=== PATIENT | male | born 1975 | race Caucasian/White ===

== ENCOUNTER 2016-04-28 18:20 | Inpatient (IN) | payer MEDICAID ==
[2016-04-28] MEDS ORDERED: MAG HYDROX/AL HYDROX/SIMETH 30 ML CUP PO PRN (21:46)
[2016-04-28] MEDS ORDERED: MAGNESIUM HYDROXIDE 2,400 MG/10 ML CUP PO PRN (21:46)
[2016-04-28] MEDS ORDERED: LORazepam 2 MG/ML SYRINGE IM PRN (21:50)
[2016-04-28] MEDS ORDERED: ZIPRASIDONE 40 MG CAP PO SCH (22:00)
[2016-04-28] MEDS: NICOTINE 14MG/24HR PATCH TRANSDERM SCH (23:25)
[2016-04-29] MEDS ORDERED: SYMBICORT 160-4.5 MCG INHALER INHALATION SCH (08:00)
[2016-04-29] MEDS: NICOTINE 14MG/24HR PATCH TRANSDERM SCH (09:10)
[2016-04-29] MEDS: ZIPRASIDONE 40 MG CAP PO SCH ×2 (09:11→21:00)
--- NOTE | 2016-04-29 10:42 | HP ---
DATE OF ADMISSION: 04/28/2016 IDENTIFYING DATA: Patient is a 41 years old male, unemployed and he lives with his cousin and cousin's family. He was referred to the mental health unit for command hallucination . CHIEF COMPLAINT: Patient presented with severe depression for the last couple of days and increased auditory hallucination, telling him to hurt himself. HISTORY OF PRESENT ILLNESS: Patient has long history of psychiatric illness, started in 2000 and he has been seen at the [facility] and he has therapist his name is Anand and his psychiatric Dr. Mayfield. Patient reports at least 11 inpatient psych hospitalization and his last hospitalization was at our unit here in September 2015. Patient stated that his outpatient psychiatrist reduced the Geodon dose from 80 mg a day to 40 mg a day and he has been taking trazodone 100-150 at bedtime in addition to Ativan 0.5 up to 3 times a day p.r.n. Patient endorses increased depression for the last couple of days, sleeping up to 12 to 14 hours a day. No energy. No motivation and command they visual hallucination got quite intense for the last couple of days. Patient cannot identify any trigger. Patient stated that he is trying to appeal social security claim as he was denied before and currently he is waiting about the result. Patient stated that he always has voices, but they are very soft and he was able to ignore it. Patient reports that the voices was telling him to cut his wrist and he could not contract for safety and that is why he did ask to come to the hospital. Patient stated that he has been compliant with the medication as prescribed, but he said, "I don't know I come to the hospital to adjust my medication then in the outpatient they tried to cut it down". When I did ask him about the reason if he did have any side effects or if it did affect his heart he said, "I'm not sure why did she do it". Patient endorses anxiety and feeling that he is missing his children as he talked about having 2 teenage age 17 and 16, they are living in [place] and he has been not able to see them for the last 2 years. Patient said, " I don't have the money to take her to the court to ask for visitation because now she took my kids and she is remarried." PAST PSYCHIATRIC HISTORY: 1. As I mentioned before, patient had at least between 10 to 11 psych hospitalization. First psych hospitalization it was in 2000 and his last psych hospitalization was here in our unit in September 2015. 2. Patient was diagnosed with schizoaffective disorder versus major depression with psychotic feature. 3. He stated that he had one suicide attempt in the past as he did cut his wrist. 4. Psychotropic medication try he tried where the trazodone manic as Cymbalta dose tried that patient reported that the most effective medications that does increase the intensity of the voices is Geodon and at one time he was up to 80 mg in the morning and 40 mg at night. Chemical dependency history: Patient reports past history of alcohol use; however, he denied any alcohol or for the last 8 years. FAMILY HISTORY PSYCHIATRIC HISTORY: His father was alcoholic. Also, he stated that his mother is known to have psychiatric illness but patient is not aware about her diagnosis. PAST MEDICAL HISTORY: Patient denied any current significant general history except he has asthma and allergies. However, in the record it does shows that he has history of irregular heart rhythm. ALLERGIES: ERYTHROMYCIN. Review all the system is negative for 11 systems, for further past medical history please review history and physical examination done by medical consultation. Legal program: He denied any legal program. SOCIAL HISTORY: Patient is oldest of 7 sibship, he had 3 brothers and 3 sisters and one of brothers from lymphoma. Also, his father from leukemia. Patient was in special education class since elementary school due to dyslexia. He was once, ended by divorce and he has 2 children, a son who is 16 years of age, daughter 17 years of age and as I mentioned before, patient did not see them for 2 years. The patient is unemployed for the last 8 years and he has no income. He just have food stamps. Patient was an relationship up to 2013 when she want to do surgery and then she and patient stated that since then he has been having a lot of grief and is not able to get over the losses. For the last year patient has been living with his cousin and cousin's . 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 However, after this it seems that he has been spending most of the day watching TV. Patient stated that his main support system is his mother. MENTAL STATUS EXAMINATION: Patient is an overweight male, who is disheveled, body odor dressed in hospital, very pleasant, cooperative. He reports a depressed mood, feeling lonely, hopeless also he reports auditory hallucination, telling him to hurt himself. His thought process is linear and he did provide answers to most of the question with very brief response. In general he was not spontaneous, and he has some dysarthria. His voice sounds like staccato rythm. On the cognitive exam he was oriented and alert to person, place and today's date. He was able to remember 2 out of 3 objects in 4 minutes. He was able to spell [id number] forward but backward he said [id number]. His insight and judgment are limited. Intellectual levels: Below average. Strength and weakness: STRENGTH: He is able to ask for help. Also he has family support. WEAKNESS: There is no income, chronic mental illness. ASSESSMENT: The patient is a 41 -year-old male with diagnosis of schizoaffective disorder. Currently he has depression and auditory hallucination with command type. It seems that he has been compliant with medication. However, it seems that Geodon was cut down from 80 to 40, that might be precipitating this episode. Patient is willing to be engaged treatment. DIAGNOSES: 1. Schizoaffective disorder, depressed type. 2. Dyslexia by history. PLAN AND RECOMMENDATION: Patient was admitted to the mental health unit and he did sign in voluntarily. I will increase the Geodon to 40 mg twice a day. I will continue him on Ativan 0.5 p.r.n. and also, I will start him back on trazodone 100 mg at bedtime. I did order an EKG to rule out any irregular heartbeat. Patient will participate in individual and group therapy as tolerated. Patient will have medical care consultation by the hospitalist. Length of stay 4 to 5 days with the plan to discharge him back to [facility]. YARIEL
[2016-04-29] MEDS: LORazepam 1 MG TAB PO PRN (16:37)
[2016-04-29] MEDS: ACETAMINOPHEN TAB 325 MG TAB PO PRN (20:17)
[2016-04-29] MEDS ORDERED: traZODone HCL 100 MG TAB PO SCH (21:00)
[2016-04-29] MEDS: traZODone HCL 50 MG TAB PO SCH (21:00)
--- NOTE | 2016-04-29 22:13 | CONS ---
DATE OF CONSULTATION: REASON FOR CONSULTATION: Medical history and physical. HISTORY OF PRESENTING ILLNESS: This is a 41-year-old gentleman with no significant medical history who comes into the hospital with some visual hallucinations and some auditory hallucinations that were guiding him to hurt himself. At this time patient denies having any suicidal ideations. Patient apparently was hospitalized multiple times for other psychiatric events. In regards to his medical history, patient denies having any previous diagnosis of high blood pressure or diabetes. Patient denies having any complaints of headaches or change in vision or hearing abnormalities. Patient also denies having any chest pain, difficulty in breathing, nausea, vomiting, abdominal pain, urinary urgency or frequency or change in bowel habits in the recent times. PAST MEDICAL HISTORY: None. SURGICAL HISTORY: He has had ankle surgery in the past. FAMILY HISTORY: Not pertinent to the current admission. ALLERGIES: ERYTHROMYCIN. REVIEW OF SYSTEMS: Twelve-point review of systems was done; none positive other than what was described in HPI. Medications were reviewed from the history and physical. SOCIAL HISTORY: Patient is currently unemployed. Denies any illicit drug use or alcohol abuse or tobacco use. PHYSICAL EXAM: Vitals appear to be within normal limits, including blood pressure 145/95, respiratory rate 18, pulse rate 84 and temperature of 98 degrees Fahrenheit. GENERAL APPEARANCE: Alert, oriented x3. Does not appear to be in distress. NECK: Supple. No JVD. HEENT: Head is atraumatic, normocephalic. Pupils are equal, round and reactive to light and accommodation. LUNGS: Good air entry. Clear to auscultation. No rhonchi, wheezing or crackles appreciated. HEART: S1, S2 heard. Regular rate and rhythm. No murmurs appreciated. ABDOMEN: Soft, nontender. No organomegaly. Bowel sounds are intact. NEUROLOGIC EXAM: Cranial nerves II through XII grossly intact. No focal motor or sensory deficits noted. Patient was able to repeat 3 words after 5 minutes during examination. No dysdiadochokinesia noted. He was able to perform a two-step command. TSH was noted to be at 1.130. ASSESSMENT AND PLAN: 1. Schizoaffective disorder. 2. Dyslexia. 3. History of right ankle injury, status post arthroplasty. PLAN: Patient is medically stable. Physical exam is within normal limits. No further tests are recommended at this time. Management per you in regards to treatment of auditory hallucinations. Thank you for the consultation. Please inform ( ) that patient's blood pressure appears to be uncontrolled later; however, will monitor the current blood pressure, which is around 145/80.
[2016-04-30] MEDS: ZIPRASIDONE 40 MG CAP PO SCH ×2 (08:58→20:57)
[2016-04-30] MEDS: NICOTINE 14MG/24HR PATCH TRANSDERM SCH (08:59)
[2016-04-30] MEDS: ALBUTEROL INHALER 60 PUFF/8 GM INHALER INHALATION PRN ×3 (09:23→20:33)
--- NOTE | 2016-04-30 16:37 | P.PN ---
Progress Note - Text INTERVAL HISTORY: He reports that he slept 7 hours with Trazodone ,command hallucinations less intense than before ,he reports that he has been in group and activities , socializing with other peers ,he denies any side-effects from medications MENTAL STATUS EXAM: Patient is unkept ,disheveled ,body odor ,alert and cooperative ,less tangential ,very concrete ,his mood "Nervous",blunted affect ,still having command auditory hallucination telling him to hurt himself ,able to contract for safety ,he does not show any aggression or violent behavior ASSESSMENT :patient is still endorsing command hallucinations but less intense with higher dose of Geodon PLAN: Maintain current psychotropic regime ,monitor symptoms and any medication side-effects
[2016-04-30] MEDS: LORazepam 1 MG TAB PO PRN (17:43)
[2016-04-30] MEDS: traZODone HCL 50 MG TAB PO SCH (20:57)
[2016-04-30] MEDS: ACETAMINOPHEN TAB 325 MG TAB PO PRN (21:40)
[2016-04-30 22:07] VITALS: BMI 43.1
[2016-05-01] MEDS: ACETAMINOPHEN TAB 325 MG TAB PO PRN ×2 (06:54→11:43)
[2016-05-01] MEDS ORDERED: LORazepam 0.5 MG TAB PO PRN (08:45)
[2016-05-01] MEDS: NICOTINE 14MG/24HR PATCH TRANSDERM SCH (09:00)
[2016-05-01] MEDS: IBUPROFEN 800 MG TAB PO PRN ×3 (09:01→21:40)
[2016-05-01] MEDS: ZIPRASIDONE 40 MG CAP PO SCH ×2 (09:01→21:40)
--- NOTE | 2016-05-01 09:02 | P.PN ---
Progress Note - Text INTERVAL HISTORY: He reports command hallucinations "But they are not loud as before",he endorses anxiety especially "Around lot of people", , he has been in group and activities ,socializing with other peers ,he denies any side-effects from medications ,denies any sleeping or appetite problems Reports pain in right ankle since his surgery couple of years ago,rates pain 4/ 5 ,5 being the worse PER NURSING STAFF:Requested PRN 1mg Ativan yesterday noon for anxiety,slept 6-7 hours MENTAL STATUS EXAM: Patient is unkept ,but no body odor ,alert and cooperative ,less tangential , very concrete ,his mood "Nervous",blunted affect ,still having command auditory hallucination telling him to hurt himself ,able to contract for safety ,he does not show any aggression or violent behavior ASSESSMENT :Patient is tolerating medications ,less depressed ,command hallucinations less intense ,still anxious at times PLAN: Maintain current psychotropic regime ,add Motrin PRN for pain ,decrease PRN Ativan dose ,family meeting with his cousin Tomorrow and possible discharge early next week
[2016-05-01] MEDS: ALBUTEROL INHALER 60 PUFF/8 GM INHALER INHALATION PRN ×2 (10:15→16:35)
[2016-05-01] MEDS: traZODone HCL 50 MG TAB PO SCH (21:40)
[2016-05-02 06:05] VITALS: RESP 16
[2016-05-02] MEDS: NICOTINE 14MG/24HR PATCH TRANSDERM SCH (08:40)
[2016-05-02] MEDS: IBUPROFEN 800 MG TAB PO PRN ×2 (08:41→16:19)
[2016-05-02] MEDS: ZIPRASIDONE 40 MG CAP PO SCH ×2 (08:41→21:15)
--- NOTE | 2016-05-02 11:25 | P.PN ---
Progress Note - Text Interval history: The patient is found in group he follows me to an interview room. He has an ongoing diagnosis of schizoaffective disorder and has been restarted on his Geodon 40 mg twice daily. He states the medication has decreased the intensity of the command auditory hallucinations. They continue to direct self-harm but he feels that he is able to control his behavior with the medication. He reports sleeping at night he states he's been eating and he has been participating in group. He is looking forward to a family meeting with his cousin today. He has no questions or concerns regarding his medications. Mental status exam: The patient is an overweight male he is dressed casually in a T-shirt and sweatpants he has a disheveled appearance hygiene appears to be fair. Eye contact is good. Speech is spontaneous fluent he speaks inadvertently with a loud voice. He demonstrates no verbal or physical aggressiveness. He is reporting no acute suicidal or homicidal ideation. Thought process is linear there is no evidence of tangential thinking loose associations or flight of ideas. Insight and judgment improving. Plan: The patient will continue on his current medications. We will consider titrating the Geodon further if needed. We will monitor him for safety and encourage his participation in the milieu. Vital signs reviewed.
[2016-05-02] MEDS: ALBUTEROL INHALER 60 PUFF/8 GM INHALER INHALATION PRN ×2 (12:52→21:50)
[2016-05-02] MEDS: traZODone HCL 50 MG TAB PO SCH (21:15)
[2016-05-03] MEDS: IBUPROFEN 800 MG TAB PO PRN ×2 (09:04→17:00)
[2016-05-03] MEDS: NICOTINE 14MG/24HR PATCH TRANSDERM SCH (09:04)
[2016-05-03] MEDS: ZIPRASIDONE 40 MG CAP PO SCH (09:04)
[2016-05-03] MEDS: ALBUTEROL INHALER 60 PUFF/8 GM INHALER INHALATION PRN ×4 (09:10→21:58)
--- NOTE | 2016-05-03 10:38 | P.PN ---
Progress Note - Text Interval history: The patient is found in group he follows me to an interview room. He states he feels very irritable and agitated. At first he has no explanation why and states "I just woke up this way". With further questioning he states "I miss my brother". The patient has been on higher doses of Geodon in the past and we discussed titrating that further and he is agreeable. He does continue to experience auditory hallucinations. He feels at this point they're just talking and no longer commanding. He is attempting to attend groups he has demonstrated no agitated behavior. Mental status exam: The patient is an overweight disheveled male he is dressed in his own clothing. Hygiene is fair. Eye contact is good. He is cooperative. He reports feeling irritable and agitated his affect is congruent but he demonstrates no aggressiveness during our session. He continues to endorse auditory hallucinations that are at this point noncommanding. He is reporting no acute suicidal or homicidal ideation. He reports feeling safe he is endorsing no significant paranoid thoughts. Insight and judgment improving. He is oriented to person place and date. Plan: The patient will continue on his current medication however we will titrate the Geodon to 60 mg twice daily with meals. Overall he is stabilizing. We will continue to monitor him for safety and encourage his participation in the milieu. Vital signs reviewed.
[2016-05-03] MEDS: ZIPRASIDONE 60 MG CAP PO SCH (21:44)
[2016-05-03] MEDS: traZODone HCL 50 MG TAB PO SCH (21:44)
[2016-05-04 06:19] VITALS: BP 130/59; PULSE 66; TEMP 97.7
[2016-05-04] MEDS: ALBUTEROL INHALER 60 PUFF/8 GM INHALER INHALATION PRN (08:53)
--- NOTE | 2016-05-04 09:47 | DS ---
DATE OF ADMISSION: 04/28/2016 DATE OF DISCHARGE: 05/04/2016 Consult physician: Joel. Consulting provider is Dr. Chava Mckeon. Venue Attendant reason for medical management. DISCHARGE DIAGNOSES: 1. Schizoaffective disorder, depressed episode in partial remission or early remission. 2. Anxiety disorder, not otherwise specified. BRIEF SUMMARY OF ADMISSION NOTE: Please refer to my history and physical examination dictated on April 28. Patient was admitted to the mental health unit on voluntary basis for auditory hallucination, telling him to hurt himself. Patient has been seen at [facility] and his outpatient psychiatric is Dr. Mayfield, please refer to my initial notes regarding further evaluation. SUMMARY OF THE HOSPITAL COURSE: Patient was admitted to the mental health unit, I did review treatment option and he did agree to increase his Geodon to 60 mg twice a day and restart him on trazodone 150 mg at bedtime. He stated that he used to take Ativan 0.5 up to 3 times p.r.n.; however, I did discuss with him the addiction potential of Ativan and especially it does make him more tired, and not motivated to do anything. Patient was receptive to this. Throughout his hospitalization, patient was able to participate at least in 50% of group therapy. Regarding taking care of his basic hygiene, he was not consistent in this and he does need a lot of reinforcement to maintain his basic hygiene. Mental status examination at the time of his discharge, patient is overweight male, casually dressed, disheveled appearance, poor hygiene but he gave good eye contact and his speech is spontaneous. He denied any suicidal or homicidal ideation. He stated that the voices are under control. He demonstrate no verbal or physical aggression. His thought process is coherent, some loose association and his insight and judgment improving. PLAN: 1. Patient was discharged from the mental health unit today to return home to stay with his cousin. Patient has meeting regarding his Social Security application end of April. 2. Patient will continue following with [facility]. 3. Patient was given one month supply for Geodon 60 mg twice a day, trazodone 150 mg at bedtime as the patient was complaining of having chronic pain. He was given prescription for Motrin 800 to take it as needed for pain. The patient is able to complete his activity of daily living. There is no eminent safety risk for him and he was ready to be discharged to follow up with outpatient care. I did discuss with him the possibility of increased socialization by going to [facility] and patient was receptive. Patient was instructed to return to the emergency room if any acute safety conserve came. Prognosis fair with continued treatment.
[2016-05-04] MEDS: IBUPROFEN 800 MG TAB PO PRN (09:51)
[2016-05-04] MEDS: NICOTINE 14MG/24HR PATCH TRANSDERM SCH (09:51)
[2016-05-04] MEDS: ZIPRASIDONE 60 MG CAP PO SCH (09:51)
== END 2016-05-04 11:31 | disposition home or self-care (01) | DRG 885 ==
LOC: 3MHU 21:26
PROVIDERS: ADMIT Psychiatry & Neurology Psychiatry; ATTEND Psychiatry & Neurology Psychiatry
DX: F25.1 Schizoaffective disorder, depressive type (principal); F41.9 Anxiety disorder, unspecified; G89.29 Other chronic pain; J45.909 Unspecified asthma, uncomplicated; R48.0 Dyslexia and alexia; Z91.5 Personal history of self-harm
CPT/HCPCS: 84443; 93005; 94640

== ENCOUNTER 2016-05-17 00:30 | Observation (INO) | payer MEDICAID, OTHER ==
[2016-05-17 02:14] VITALS: BMI 43.2
[2016-05-17] MEDS ORDERED: HEPARIN SODIUM,PORCINE 5,000 UNIT/ML 1 ML VIAL IV ONE (02:16)
[2016-05-17] MEDS ORDERED: HEPARIN SODIUM,PORCINE 5,000 UNIT/ML 1 ML VIAL IV PRN (02:16)
[2016-05-17] MEDS ORDERED: MORPHINE SULFATE 4 MG/ML SYRINGE IVP PRN (02:20)
[2016-05-17] MEDS ORDERED: HEPARIN SODIUM,PORCINE/D5W PMX 25,000 UNIT in DEXTROSE/WATER 1 500ML.BAG IV SCH (02:30)
[2016-05-17 02:41] LABS: Basophils # (A) 0.1 k/uL (0-0.2); Basophils % (A) 1 %; CH 33.6; CHCM 34.8; Eosinophils # (A) 0.4 k/uL (0-0.7); Eosinophils % (A) 4 %; HCT 46.7 % (39.0-53.0); HDW 2.77; HGB 15.7 gm/dL (13.0-17.5); Luc # (Auto) 0.32; Luc % (Auto) 3; Lymphocytes # (A) 2.8 k/uL (1.0-4.8); Lymphocytes % (A) 31 %; MCH 32.6 pg (25.0-35.0); MCHC 33.6 g/dL (31.0-37.0); Monocytes # (A) 0.7 k/uL (0-1.0); Monocytes % (A) 8 %; Neutrophils # (A) 4.9 k/uL (1.3-7.7); Neutrophils % (A) 53 %; RBC 4.82 m/uL (4.30-5.90); RDW 12.9 % (11.5-15.5); WBC 9.2 k/uL (3.8-10.6)
[2016-05-17] MEDS: NITROGLYCERIN OINT 1 INCH/GM PACKET TOPICAL SCH ×4 (02:45→18:02)
[2016-05-17 02:46] LABS: INR 1.1 (<1.1); Partial Thromboplastin Time 24.2 sec (22.0-30.0); Prothrombin Time 10.7 sec (9.0-12.0)
[2016-05-17 03:21] LABS: Creatine Kinase 145 U/L (55-170)
[2016-05-17 03:33] LABS: Creatine Kinase MB 1.8 ng/mL (0.0-2.4); Troponin I <0.012 ng/mL (0.000-0.034)
[2016-05-17] MEDS ORDERED: ALBUTEROL NEBULIZED 2.5 MG/3 ML INHALATION PRN (07:21)
[2016-05-17] MEDS ORDERED: IBUPROFEN 800 MG TAB PO PRN (07:21)
--- NOTE | 2016-05-17 08:16 | CONS ---
DATE OF CONSULTATION: Mr. Valencia is a 41 -year-old male who was transferred from [facility] for evaluation of chest discomfort. Patient has been seen by Dr. Diane Rahman in the past, has a history of arrhythmia according to him, but no other cardiac history. Yesterday, while sitting in the chair, he had tingling in the fingers and subsequently chest discomfort. Because of that, he went to the emergency room. He was still having some discomfort in [place] emergency room and subsequently transferred here. He has history of chronic dyspnea on exertion related to his chronic obstructive lung disease but has no history of exertional chest discomfort. He denies any prior history of myocardial infarction. He has no history of PND, orthopnea or peripheral edema. He has occasional palpitation but no dizziness or syncope. Some of the discomfort in the chest is worse with palpitation. His past medical history is remarkable for a history of the arrhythmia. Details of that are not available to me as well as a history of bipolar disorder. His coronary risk factors are remarkable for smoking, no history of documented hypertension, hyperlipidemia or diabetes. His medications include: 1. Ventolin. 2. ( ). 3. Desyrel. 4. Geodon. 5. Motrin. REVIEW OF SYSTEMS: RESPIRATORY SYSTEM: Has no recent history of fever but he has chronic obstructive lung disease and occasional cough. GASTROINTESTINAL: No recent gastrointestinal bleed. No peptic ulcer disease . GENITOURINARY: no dysuria or hematuria. CENTRAL NERVOUS SYSTEM: He has a history of bipolar disorder. SOCIAL HISTORY: He drinks large amount of caffeine, smokes, but no history of alcohol intake. PHYSICAL EXAMINATION: He is a 41-year-old male, alert, oriented, in no apparent distress. Blood pressure 140/90 with a heart rate in the 60s. HEAD: Normocephalic. EYES: Sclerae anicteric. NECK: Good upstroke. No bruits. No jugular venous distention. LUNGS: Clear to auscultation. HEART: Regular rate rhythm. S1, S2, no S3, no S4, no murmur or rub. ABDOMEN: Soft, nontender, positive bowel sounds. No organomegaly. EXTREMITIES: No edema. Intact distal pulses. Chest wall with chest wall tenderness reproducing the pain. EKG sinus mechanism, rate 65, normal axis and intervals, cannot exclude inferior myocardial infarction with nonspecific ST-T wave changes. Lab data revealed troponin less than 0.012. Hemoglobin of 15.7. IMPRESSION: 1. Chest discomfort, has atypical for feature for ischemic heart disease, probable musculoskeletal in etiology. 2. History of chronic tobacco use. 3. History of bipolar disorder. 4. History of arrhythmia. The patient is in sinus mechanism at this time. RECOMMENDATIONS: I will stop the heparin. Proceed with obtaining a dobutamine stress echocardiogram tomorrow as well as transthoracic echo and depending on those findings, further recommendation will be made. Thank you for this consult. We will follow with you.
[2016-05-17] MEDS: ZIPRASIDONE 60 MG CAP PO SCH ×2 (08:38→21:31)
[2016-05-17] MEDS: ASPIRIN 81 MG CHEW PO SCH (08:39)
[2016-05-17] MEDS ORDERED: CARIPRAZINE HYDROCHLORIDE 4.5 MG PO SCH (09:00)
[2016-05-17 09:49] LABS: Creatine Kinase 124 U/L (55-170)
[2016-05-17 10:02] LABS: Creatine Kinase MB 1.6 ng/mL (0.0-2.4); Troponin I <0.012 ng/mL (0.000-0.034)
[2016-05-17] MEDS ORDERED: traMADol-ACETAMINOP 37.5-325MG 1 EACH TAB PO PRN (14:04)
[2016-05-17 14:52] LABS: Creatine Kinase 100 U/L (55-170)
[2016-05-17 15:05] LABS: Creatine Kinase MB 1.3 ng/mL (0.0-2.4); Troponin I <0.012 ng/mL (0.000-0.034)
[2016-05-17] MEDS: SODIUM CHLORIDE 0.9% 1,000 ML IV SCH (15:47)
[2016-05-17] MEDS: FAMOTIDINE 20 MG TAB PO SCH (15:52)
--- NOTE | 2016-05-17 18:02 | HP ---
DATE OF ADMISSION: 05/17/2016 The patient is a 41 -year-old gentleman who was transferred from [facility] for chest pain. the patient started having chest discomfort yesterday 12/29 in severity, relieved by nitroglycerine, the patient did not have any acute ST-T wave changes. The patient denied any lightheadedness. The patient denied any ( ) chest pain is nonpleuritic in nature, not associated with food. The patient ( ) is elevated creatinine because of which ( ) and the patient was evaluated by Cardiology. The patient is having stress test tomorrow. The patient denied any shortness of breath, orthopnea or PND. Patient is morbidly obese. Patient will be started on ( ) because of acute renal dysfunction and ( ). PAST MEDICAL HISTORY: Significant for some kind of arrhythmia, bipolar disorder. Home medications include: 1. Ventolin. 2. Geodon. 3. Motrin. REVIEW OF SYSTEMS: CONSTITUTIONAL: No fever, no malaise, no fatigue. HEENT: No recent visual problems or hearing problems. Denied any sore throat. CARDIOVASCULAR: As described in history of present illness. PULMONARY: No shortness of breath, no cough, no hemoptysis. GASTROINTESTINAL: No diarrhea, no nausea, no vomiting, no abdominal pain. Normoactive bowel sounds. NEUROLOGICAL: No headaches, no weakness, no numbness. HEMATOLOGICAL: Denies any bleeding or petechiae. GENITOURINARY: Denies any burning micturition, frequency, or urgency. MUSCULOSKELETAL/RHEUMATOLOGICAL: Denies any joint pain, swelling, or any muscle pain. ENDOCRINE: Denies any polyuria or polydipsia. The rest of the 14 point review of systems is negative. SOCIAL HISTORY: Denied any smoking, alcohol abuse or any drug abuse. FAMILY HISTORY: Significant for some kind of cancer. PHYSICAL EXAMINATION: VITAL SIGNS: Temperature 98.2, pulse of 60, respiratory rate of 16, blood pressure is 146/99. Saturating 98% on room air. GENERAL: ( ) The patient is alert and oriented x3, not in any acute distress. Well developed, well nourished. HEENT: Pupils are round and equally reacting to light. EOMI. No scleral icterus. No conjunctival pallor. Normocephalic, atraumatic. No pharyngeal erythema. No thyromegaly. CARDIOVASCULAR: S1 and S2 present. No murmurs, rubs, or gallops. PULMONARY: Chest is clear to auscultation, no wheezing or crackles. ABDOMEN: Soft, nontender, nondistended, normoactive bowel sounds. No palpable organomegaly. MUSCULOSKELETAL: No joint swelling or deformity. EXTREMITIES: No cyanosis, clubbing, or pedal edema. NEUROLOGICAL: Gross neurological examination did not reveal any focal deficits. SKIN: No rashes. Laboratory data: CBC available, ( ) within normal limits; the patient's creatinine was elevated from [facility] for which the patient will be started on IV fluids and hold off antihypertensive medications. Patient apparently had a history of ( ) in the past. The EKG showed some Q waves in the inferior leads. ASSESSMENT AND PLAN: 1. Chest pain appears to be noncardiac in nature, considered ( ) chest pain at this point of time. ( ) chest pain, completely resolved at this point in time. The patient is going for stress test ( ). 2. Bipolar disorder, for which the patient's home medications will be continued. 3. Morbid obesity, counselling was provided. 4. ( ), hold off on ibuprofen, continue to use tramadol. 5. Acute renal failure, ( ) and benefits ( ) started on IV fluids and recheck creatinine tomorrow. Possibility of discharge tomorrow after stress test.
[2016-05-17] MEDS ORDERED: traZODone HCL 50 MG TAB PO SCH (21:00)
[2016-05-18] MEDS: SODIUM CHLORIDE 0.9% 1,000 ML IV SCH ×2 (01:00→08:01)
[2016-05-18] MEDS: NITROGLYCERIN OINT 1 INCH/GM PACKET TOPICAL SCH ×3 (01:01→12:28)
[2016-05-18] MEDS ORDERED: NITROGLYCERIN SL TABS 0.4 MG TAB SUBLINGUAL ONE (05:47)
[2016-05-18 06:39] LABS: Basophils # (A) 0.1 k/uL (0-0.2); Basophils % (A) 1 %; CH 33.8; CHCM 34.5; Eosinophils # (A) 0.4 k/uL (0-0.7); Eosinophils % (A) 6 %; HCT 46.2 % (39.0-53.0); HDW 2.73; HGB 15.6 gm/dL (13.0-17.5); Luc % (Auto) 3; Lymphocytes # (A) 2.1 k/uL (1.0-4.8); Lymphocytes % (A) 31 %; MCH 33.2 pg (25.0-35.0); MCHC 33.7 g/dL (31.0-37.0); MCV 98.4 fL (80.0-100.0); Mean Platelet Volume 8.8; Monocytes # (A) 0.5 k/uL (0-1.0); Monocytes % (A) 7 %; Neutrophils # (A) 3.5 k/uL (1.3-7.7); Neutrophils % (A) 52 %; RDW 12.7 % (11.5-15.5); WBC 6.7 k/uL (3.8-10.6); WBC (Perox) 6.73
[2016-05-18 06:55] LABS: Anion Gap 8 mmol/L; Blood Urea Nitrogen 15 mg/dL (9-20); Calcium 8.9 mg/dL (8.4-10.2); Carbon Dioxide 28 mmol/L (22-30); Chloride 105 mmol/L (98-107); Glucose 100 mg/dL (74-99); Non-African American GFR(MDRD) >60 (>60 ml/min/1.73 sqM); Potassium 4.4 mmol/L (3.5-5.1); Sodium 141 mmol/L (137-145)
[2016-05-18] MEDS ORDERED: DOBUTamine DRIP for NUC MED 500 MG in DEXTROSE/WATER 1 250ML.BAG IV ONE (08:00)
[2016-05-18] MEDS: FAMOTIDINE 20 MG TAB PO SCH (08:01)
[2016-05-18] MEDS: ASPIRIN 81 MG CHEW PO SCH (08:01)
[2016-05-18] MEDS: ZIPRASIDONE 60 MG CAP PO SCH (08:01)
[2016-05-18 08:38] VITALS: BP 139/71; PULSE 60; RESP 18; TEMP 97.2
[2016-05-18] MEDS ORDERED: ATROPINE SULFATE 0.1 MG/ML 10ML SYRINGE ONE (09:56)
--- NOTE | 2016-05-18 11:16 | ECHOF ---
Referral Reason:cp MEASUREMENTS -------- HEIGHT: 175.3 cm WEIGHT: 133.4 kg BP: IVSd: 1.6 cm (0.6 - 1.1) LVIDd: 4.3 cm (3.9 - 5.3) LVPWd: 1.6 cm (0.6 - 1.1) IVSs: 2.1 cm LVIDs: 2.9 cm LVPWs: 1.7 cm Ao Diam: 3.6 cm (2.0 - 3.7) AV Cusp: 2.2 cm (1.5 - 2.6) LA Diam: 3.3 cm (2.7 - 3.8) MV EXCURSION: 18.048 mm (> 18.000) MV EF SLOPE: 156 mm/s (70 - 150) EPSS: 0.6 cm MV E Owen: 0.96 m/s MV DecT: 166 ms MV A Owen: 1.04 m/s MV E/A Ratio: 0.92 RAP: 5.00 mmHg RVSP: 23.02 mmHg FINDINGS -------- Sinus rhythm. This was a technically difficult study with suboptimal views. There is moderate concentric left ventricular hypertrophy. Overall left ventricular systolic function is normal with, an EF between 55 - 60 %. The right ventricle is normal in size and function. The left atrium is normal in size. The right atrium is normal in size. The aortic valve is trileaflet, and appears structurally normal. No aortic stenosis or regurgitation. The mitral valve leaflets are mildly thickened. There is trace mitral regurgitation. Trace tricuspid regurgitation present. The right ventricular systolic pressure, as measured by Doppler, is 23.02mmHg. Pulmonic valve appears structurally normal. The pericardium is normal. CONCLUSIONS -------- 1. Sinus rhythm. 2. There is trace mitral regurgitation. 3. Trace tricuspid regurgitation present. 4. The right ventricular systolic pressure, as measured by Doppler, is 23.02mmHg. 5. Pulmonic valve appears structurally normal. 6. The pericardium is normal. 7. This was a technically difficult study with suboptimal views. 8. There is moderate concentric left ventricular hypertrophy. 9. Overall left ventricular systolic function is normal with, an EF between 55 - 60 %. 10. The right ventricle is normal in size and function. 11. The left atrium is normal in size. 12. The right atrium is normal in size. 13. The aortic valve is trileaflet, and appears structurally normal. No aortic stenosis or regurgitation. 14. The mitral valve leaflets are mildly thickened. [employer]ER: Joleen Sheikh RDCS
--- NOTE | 2016-05-18 11:57 | ECHOS ---
DATE OF SERVICE: 05/18/2016 AGE: 41Y SEX: M HT: 69" WT: 293 lbs. Protocol Bryce: Others: Dobutamine Stress Echo Stage: 4 Dur. of Exercise: 11:30 *Heart Rate Blood Pressure *Rest: 64 Rest: 122/89 * *Max. Achieved: 154 Maximum BP: 176/69 85% PMHR: 151 100% PMHR: 178 *METS: - INDICATIONS: Chest pain. MEDICATIONS: - Patient was given dobutamine infusion according to the standard protocol. Peak heart rate of 154 was achieved. Maximum blood pressure of 176/69 mmHg was noted. Intravenous contrast in the form of Definity was used. Resting EKG shows normal sinus rhythm with normal MA interval and QRS duration and normal ST-T waves. No ST segment depression suggestive of ischemia is noted. The baseline echocardiographic images reveal a normal left ventricular chamber size with normal left ventricular systolic function. In the immediate postexercise period, normal increase in the wall thickness and contractility is noted. FINAL IMPRESSION: This dobutamine stress echocardiographic study is negative for stress-induced ischemia. EKG portion of the stress test is not suggestive of ischemia. No dysrhythmias are noted.
--- NOTE | 2016-05-18 12:43 | P.PN ---
Subjective Principal diagnosis: Chest pain This is a 41-year-old gentleman who was originally transferred here from [facility] with symptoms of chest discomfort. He underwent a dobutamine echocardiographic study which was not significant for any reversible ischemia, echocardiogram with Doppler study was performed which revealed a normal left ventricular systolic function. Patient feels well today, denies any chest pain or difficulty in breathing. He has been up ambulating without any difficulty. Objective - Vital Signs Vital signs: Vital Signs Temp 97.2 F L 05/18/16 08:00 Pulse 60 05/18/16 08:00 Resp 18 05/18/16 08:00 BP 139/71 05/18/16 08:00 Pulse Ox 94 L 05/18/16 08:00 Intake & Output 05/17/16 05/18/16 05/18/16 18:59 06:59 18:59 Intake Total 600 Output Total 200 Balance 600 -200 Weight 133.7 kg Intake: Oral 600 Output: Urine 200 Other: # Voids 1 - Exam PHYSICAL EXAMINATION: HEENT: Head is atraumatic, normocephalic. Pupils equal, round. Neck is supple. There is no elevated jugular venous pressure. HEART EXAMINATION: Heart S1, S2 normal. No murmur or gallop heard. CHEST EXAMINATION: Lungs are clear to auscultation and precussion. No chest wall tenderness is noted on palpation or with deep breathing. ABDOMEN: Soft, nontender. Bowel sounds are heard. No organomegaly noted. EXTREMITIES: 2+ peripheral pulses with no evidence of peripheral edema and no calf tenderness noted. NEUROLOGIC patient is awake, alert and oriented -3. . - Labs CBC & Chem 7: 05/18/16 05:53 05/18/16 05:53 Labs: Abnormal Lab Results - Last 24 Hours (Table) 05/18/16 Range/Units 05:53 Glucose 100 H (74-99) mg/dL Assessment and Plan (1) Atypical chest pain Status: Acute (2) Nicotine dependence Status: Acute (3) Bipolar 1 disorder Status: Acute (4) Treadmill stress test negative for angina pectoris Status: Acute Plan: From cardiology's perspective, patient may be able to be discharged home today. We will make him an appointment to see Dr. Richardson in the [place] office per his request postdischarge. He has been educated regarding the importance of nicotine cessation. DNP note has been reviewed, I agree with a documented findings and plan of care. Patient was seen and examined.
--- NOTE | 2016-05-19 07:30 | DS ---
DATE OF ADMISSION: 05/17/2016 DATE OF DISCHARGE: 05/18/2016 Patient came in with chest pain. Ruled out acute coronary artery syndrome and unstable angina. Patient underwent stress test, which is negative and patient is being discharged today. Etiology of chest pain is not clear at this point of time. Patient was seen and examined on the day of discharge. Vitals are stable. PHYSICAL EXAMINATION: GENERAL: The patient is alert and oriented x3, not in any acute distress. Well developed, well nourished. HEENT: Pupils are round and equally reacting to light. EOMI. No scleral icterus. No conjunctival pallor. Normocephalic, atraumatic. No pharyngeal erythema. No thyromegaly. CARDIOVASCULAR: S1 and S2 present. No murmurs, rubs, or gallops. PULMONARY: Chest is clear to auscultation, no wheezing or crackles. ABDOMEN: Soft, nontender, nondistended, normoactive bowel sounds. No palpable organomegaly. MUSCULOSKELETAL: No joint swelling or deformity. EXTREMITIES: No cyanosis, clubbing, or pedal edema. NEUROLOGICAL: Gross neurological examination did not reveal any focal deficits. SKIN: No rashes. FINAL DIAGNOSES: 1. Chest pain. Ruled out acute coronary artery syndrome. 2. Bipolar disorder. 3. Mild renal dysfunction secondary to ibuprofen which will be discontinued. Patient will be asked to take Tylenol for pain. 4. Tylenol for pain.
== END 2016-05-18 13:52 | disposition home or self-care (01) ==
LOC: 6SEL 01:51 → INTOOBSV 01:51
PROVIDERS: ADMIT Internal Medicine; ATTEND Internal Medicine
DX: R07.89 Other chest pain (principal); F31.9 Bipolar disorder, unspecified; J44.9 Chronic obstructive pulmonary disease, unspecified; F17.200 Nicotine dependence, unspecified, uncomplicated; E66.01 Morbid (severe) obesity due to excess calories; Z68.41 Body mass index [BMI] 40.0-44.9, adult; I49.9 Cardiac arrhythmia, unspecified; Z79.899 Other long term (current) drug therapy; Z79.1 Long term (current) use of non-steroidal anti-inflammatories (NSAID); N17.9 Acute kidney failure, unspecified; T39.315A Adverse effect of propionic acid derivatives, initial encounter
CPT/HCPCS: 93017; 93306; 80048; 82550; 82553; 84484; 85025 ×2; 85610; 85730; G0378 ×2; G0379; C8928; J1250; J2270; J1644 ×2; J0461; Q9957; 93005; 93350; 96361; 96366; 96375; 96376; 99284

== ENCOUNTER 2017-03-25 10:16 | Emergency (ER) | payer OTHER ==
--- NOTE | 2017-03-25 10:36 | ED ---
Psych HPI - General Chief Complaint: Psychiatric Symptoms Stated Complaint: Mental health Time Seen by Provider: 03/25/17 10:28 Source: patient, RN notes reviewed, old records reviewed Mode of arrival: ambulatory - History of Present Illness Initial Comments: Patient is a 42-year-old male presents emergency Department chief complaint suicidal ideation. He reports he has a history of mental illness, and follows with [facility] in the activity.Patient has history of bipolar and schizoaffective disorder. Patient reports that he has had to be hospitalized to the past for suicidal ideation. Patient reports he has a plan to overdose on his pills. He reports that he called family And they told to come here. Patient lives with his cousin and his cousin's family currently. Patient reports that he is on disability. Patient denies any physical complaints at this time. He otherwise feels well besides since severe depression. Patient denies any attempts for self harm. - Related Data Home Medications Medication Instructions Recorded Confirmed Albuterol Sulfate [Proair Hfa] 1 - 2 puff INHALATION RT-Q6H PRN 03/25/17 Haloperidol 5 mg PO BID 03/25/17 03/25/17 Ibuprofen [Motrin] 800 mg PO TID PRN 03/25/17 03/25/17 cloZAPine [Clozaril] 100 mg PO HS 03/25/17 03/25/17 hydrOXYzine PAMOATE [Vistaril] 50 mg PO TID 03/25/17 03/25/17 traZODone HCL 50 mg PO HS 03/25/17 03/25/17 Allergies Allergy/AdvReac Type Severity Reaction Status Date / Time erythromycin lactobionate Allergy Rash/Hives Verified 03/25/17 10:27 [From Erythrocin] Review of Systems ROS Statement: Those systems with pertinent positive or pertinent negative responses have been documented in the HPI. ROS Other: All systems not noted in ROS Statement are negative. Past Medical History Past Medical History: Atrial Fibrillation, COPD Additional Past Medical History / Comment(s): Patient states that he has a irregular heartbeat. History of Any Multi-Drug Resistant Organisms: None Reported Past Surgical History: Hernia Repair, Orthopedic Surgery Additional Past Surgical History / Comment(s): kidney doner, right ankle surgery , bilateral laproscopic knee surgery. Past Anesthesia/Blood Transfusion Reactions: No Reported Reaction Past Psychological History: Bipolar, Schizoaffective Disorder Smoking Status: Current every day smoker Past Alcohol Use History: None Reported, Abuse Past Drug Use History: None Reported - Past Family History Mother Family Medical History: No Reported History Father Family Medical History: Cancer Additional Family Medical History / Comment(s): lung cancer Brother(s) Family Medical History: Cancer Additional Family Medical History / Comment(s): lymphoma General Exam - General Exam Comments Initial Comments: This is a 42-year-old male. No acute distress. Limitations: no limitations General appearance: alert, in no apparent distress Head exam: Present: atraumatic, normocephalic, normal inspection Eye exam: Present: normal appearance, PERRL. Absent: scleral icterus, conjunctival injection, periorbital swelling ENT exam: Present: normal exam, mucous membranes moist, other (Patient has speech impediment) Neck exam: Present: normal inspection. Absent: tenderness, meningismus, lymphadenopathy Respiratory exam: Present: normal lung sounds bilaterally. Absent: respiratory distress, wheezes, rales, rhonchi, stridor Cardiovascular Exam: Present: regular rate, normal rhythm, normal heart sounds. Absent: systolic murmur, diastolic murmur, rubs, gallop, clicks GI/Abdominal exam: Present: soft, other (protruberant abdomen) Extremities exam: Present: normal inspection, full ROM, normal capillary refill. Absent: tenderness, pedal edema, joint swelling, calf tenderness Back exam: Present: normal inspection Neurological exam: Present: alert, oriented X3, CN II-XII intact Psychiatric exam: Present: normal affect, depressed, suicidal ideation Skin exam: Present: warm, dry, intact, normal color. Absent: rash Course Vital Signs 03/25/17 03/25/17 10:25 13:27 Temperature 97.6 F 98.3 F Pulse Rate 84 73 Respiratory 18 19 Rate Blood Pressure 134/97 157/99 O2 Sat by Pulse 97 96 Oximetry Medical Decision Making - Medical Decision Making This is a 42 year old male with history of schizoaffective disoreder and bipolar , with CC of suicidal ideation. PAtient apparently called [facility] team and told them he has suicidal ideation, and then his family left the home and brought him to [facility] to be evaluated. Patient plans to OD on pills. Patient has no physical complaints at this time. Patient is clear for EPS evaluation. Patient was evaluated by EPS. Patient will not be admitted at this time. Patient will be following up with the act team. They will be coming to his house this evening. He is under the highest level of care with [facility] and ACT team. Patient informed of this, he was upset to not be admitted but does agree to safety contract. Patient discharged with family. ACT team following up this afternoon. - Lab Data Lab Results 03/25/17 Range/Units 10:52 Urine Opiates Screen Not Detected (NotDetected) Ur Oxycodone Screen Not Detected (NotDetected) Urine Methadone Screen Not Detected (NotDetected) Ur Propoxyphene Screen Not Detected (NotDetected) Ur Barbiturates Screen Not Detected (NotDetected) U Tricyclic Antidepress Not Detected (NotDetected) Ur Phencyclidine Scrn Not Detected (NotDetected) Ur Amphetamines Screen Not Detected (NotDetected) U Methamphetamines Scrn Not Detected (NotDetected) U Benzodiazepines Scrn Not Detected (NotDetected) Urine Cocaine Screen Not Detected (NotDetected) U Marijuana (THC) Screen Not Detected (NotDetected) Disposition Clinical Impression: Suicidal ideation, Schizoaffective disorder Disposition: HOME SELF-CARE Condition: Good Instructions: Suicide Prevention for Adults (ED) Additional Instructions: Patient will be followed up with the act team at home this afternoon. Patient should return to the emergency department if any alarming signs or symptoms occur. Referrals: None,Stated [Primary Care Provider] - 1-2 days Time of Disposition: 13:08
[2017-03-25 11:24] LABS: Amphetamine Screen,Urine Not Detected (NotDetected); Barbiturate Screen,Urine Not Detected (NotDetected); Benzodiazepines Screen,Urine Not Detected (NotDetected); Cocaine Screen,Urine Not Detected (NotDetected); Methadone Screen, Urine Not Detected (NotDetected); Opiate Screen,Urine Not Detected (NotDetected); Oxycodone Screen, Urine Not Detected (NotDetected); Phencyclidine Screen,Urine Not Detected (NotDetected); Tricyclic Antidepressant,Urine Not Detected (NotDetected); Urn Cannabinoid Scrn Not Detected (NotDetected)
[2017-03-25 16:34] VITALS: BP 157/99; PULSE 73; RESP 19; TEMP 98.3
== END 2017-03-25 13:34 | disposition home or self-care (01) ==
LOC: EC 10:16
DX: F25.9 Schizoaffective disorder, unspecified (principal); R45.851 Suicidal ideations; I48.91 Unspecified atrial fibrillation; F31.9 Bipolar disorder, unspecified; F17.200 Nicotine dependence, unspecified, uncomplicated; Z79.899 Other long term (current) drug therapy; Z88.1 Allergy status to other antibiotic agents
CPT/HCPCS: 80306; 82075; 99284

== ENCOUNTER 2019-12-31 18:48 | Observation (INO) | payer OTHER ==
--- NOTE | 2019-12-31 18:52 | ED ---
Chest Pain HPI - General Stated Complaint: CHEST PAIN Time Seen by Provider: 12/31/19 18:51 Source: RN notes reviewed, old records reviewed Mode of arrival: EMS Limitations: no limitations - History of Present Illness Initial Comments: This is a 44-year-old male for DF for chest pain. Patient has history of arrhythmia unsure of what, headache chest pain sinus pressure arrival 7 transfer from [facility] for further cardiac evaluation monitoring. Patient has chest pain now recent states is much better than it was prior MD Complaint: chest pain -: hour(s) Onset: during rest Pain Location: left chest Pain Radiation: none Severity: mild Severity scale (1-10): 3 Quality: heaviness Consistency: constant Improves With: nothing Worsens With: nothing Context: trauma/injury Anginal Symptoms: nausea Other Symptoms: palpitations Treatments Prior to Arrival: none - Related Data Home Medications Medication Instructions Recorded Confirmed Albuterol Sulfate [Proair Hfa] 1 - 2 puff INHALATION RT-Q6H PRN 03/25/17 03/25/17 Haloperidol 5 mg PO BID 03/25/17 03/25/17 Ibuprofen [Motrin] 800 mg PO TID PRN 03/25/17 03/25/17 cloZAPine [Clozaril] 100 mg PO HS 03/25/17 03/25/17 hydrOXYzine pamoate [Vistaril] 50 mg PO TID 03/25/17 03/25/17 traZODone HCL 50 mg PO HS 03/25/17 03/25/17 Allergies Allergy/AdvReac Type Severity Reaction Status Date / Time erythromycin lactobionate Allergy Rash/Hives Verified 03/25/17 10:27 [From Erythrocin] Review of Systems ROS Statement: Those systems with pertinent positive or pertinent negative responses have been documented in the HPI. ROS Other: All systems not noted in ROS Statement are negative. EKG Findings - EKG Comments: EKG Findings:: EKG shows sinus rhythm 92 DE 136 QRS 94 QTC 499 Past Medical History Past Medical History: Atrial Fibrillation, COPD Additional Past Medical History / Comment(s): Patient states that he has a irregular heartbeat. History of Any Multi-Drug Resistant Organisms: None Reported Past Surgical History: Hernia Repair, Orthopedic Surgery Additional Past Surgical History / Comment(s): kidney doner, right ankle surgery, bilateral laproscopic knee surgery. Past Anesthesia/Blood Transfusion Reactions: No Reported Reaction Past Psychological History: Bipolar, Schizoaffective Disorder Past Alcohol Use History: None Reported, Abuse Past Drug Use History: None Reported - Past Family History Mother Family Medical History: No Reported History Father Family Medical History: Cancer Additional Family Medical History / Comment(s): lung cancer Brother(s) Family Medical History: Cancer Additional Family Medical History / Comment(s): lymphoma General Exam General appearance: alert, in no apparent distress Head exam: Present: atraumatic, normocephalic, normal inspection Eye exam: Present: normal appearance, PERRL, EOMI. Absent: scleral icterus, conjunctival injection, periorbital swelling ENT exam: Present: normal exam, mucous membranes moist Neck exam: Present: normal inspection. Absent: tenderness, meningismus, lymphadenopathy Respiratory exam: Present: normal lung sounds bilaterally. Absent: respiratory distress, wheezes, rales, rhonchi, stridor Cardiovascular Exam: Present: regular rate, normal rhythm, normal heart sounds. Absent: systolic murmur, diastolic murmur, rubs, gallop, clicks GI/Abdominal exam: Present: soft, normal bowel sounds. Absent: distended, tenderness, guarding, rebound, rigid Extremities exam: Present: normal inspection, full ROM, normal capillary refill. Absent: tenderness, pedal edema, joint swelling, calf tenderness Back exam: Present: normal inspection Neurological exam: Present: alert, oriented X3, CN II-XII intact Psychiatric exam: Present: normal affect, normal mood Skin exam: Present: warm, dry, intact, normal color. Absent: rash Course Vital Signs 12/31/19 12/31/19 18:50 19:32 Temperature 98.1 F 98.4 F Pulse Rate 71 71 Respiratory 18 20 Rate Blood Pressure 147/93 123/82 O2 Sat by Pulse 96 97 Oximetry - Reevaluation(s) Reevaluation #1: 12/31/19 20:03 Medical records reviewed 12/31/19 20:03 Transfer paperwork is reviewed Reevaluation #2: 12/31/19 20:03 Patient reevaluated, spoke patient regarding findings here in the ER Reevaluation #3: 12/31/19 20:04 Patient does have to or does appear to have a sinus arrhythmia Chest Pain MDM - MDM 44 male be excepted for chest pain chest pain observation and probably underlying arrhythmia Disposition Clinical Impression: Chest pain Disposition: ADMITTED IP TO THIS HOSP Condition: Undetermined Instructions (If sedation given, give patient instructions): Chest Pain (ED) Is patient prescribed a controlled substance at d/c from ED?: No Referrals: Davi Cao MD [REFERRING] - 1-2 days
[2019-12-31 19:14] LABS: Basophils # (A) 0.1 k/uL (0-0.2); Basophils % (A) 1 %; Eosinophils # (A) 0.9 k/uL (0-0.7); Eosinophils % (A) 9 %; HCT 46.6 % (39.0-53.0); HGB 15.8 gm/dL (13.0-17.5); Lymphocytes # (A) 3.7 k/uL (1.0-4.8); Lymphocytes % (A) 37 %; MCH 32.4 pg (25.0-35.0); MCHC 33.8 g/dL (31.0-37.0); MCV 95.8 fL (80.0-100.0); Mean Platelet Volume 8.6; Monocytes # (A) 0.7 k/uL (0-1.0); Monocytes % (A) 7 %; Neutrophils # (A) 4.4 k/uL (1.3-7.7); Neutrophils % (A) 44 %; Platelet Count 237 k/uL (150-450); RBC 4.87 m/uL (4.30-5.90); RDW 12.6 % (11.5-15.5)
--- NOTE | 2019-12-31 19:34 | XR ---
EXAMINATION TYPE: XR chest 2V DATE OF EXAM: 12/31/2019 COMPARISON: Today HISTORY: Chest pain TECHNIQUE: 2 views. Heart and mediastinum are normal. Lungs are clear. Diaphragm shows a probable small amount of pleura l fluid bilaterally. There is no heart failure. There are chest leads. IMPRESSION: There are probably small bilateral pleural effusions. Normal heart.
[2019-12-31 19:39] LABS: ALT 36 U/L (4-49); AST 30 U/L (17-59); African American GFR (CKD) >90 (>60 ml/min/1.73 sqM); Albumin 3.9 g/dL (3.5-5.0); Alkaline Phosphatase 65 U/L (38-126); Anion Gap 5 mmol/L; Blood Urea Nitrogen 15 mg/dL (9-20); Calcium 9.1 mg/dL (8.4-10.2); Carbon Dioxide 27 mmol/L (22-30); Chloride 106 mmol/L (98-107); Glucose 87 mg/dL (74-99); Lipase 121 U/L (23-300); Non-African American GFR(CKD) 90 (>60 ml/min/1.73 sqM); Potassium 4.7 mmol/L (3.5-5.1); Sodium 138 mmol/L (137-145); Total Bilirubin 0.6 mg/dL (0.2-1.3); Total Protein 6.9 g/dL (6.3-8.2)
[2019-12-31 19:41] LABS: INR 0.9 (<1.2); Partial Thromboplastin Time 24.4 sec (22.0-30.0); Prothrombin Time 9.9 sec (9.0-12.0)
[2019-12-31] MEDS ORDERED: NITROGLYCERIN SL TABS 0.4 MG TAB SUBLINGUAL PRN (20:05)
[2019-12-31] MEDS ORDERED: cloZAPine 100 MG TAB PO SCH (21:00)
[2019-12-31] MEDS: METOPROLOL TARTRATE 25 MG TAB PO SCH (22:03)
[2019-12-31] MEDS ORDERED: ALBUTEROL HFA INHALER INHALATION PRN (23:03)
[2019-12-31] MEDS ORDERED: FLUTICASONE 44 MCG INHALER INHALATION PRN (23:03)
[2019-12-31] MEDS ORDERED: [UNRECOGNIZED DRUG - REMARK] MISCELLANE PRN (23:22)
[2020-01-01] MEDS: ALBUTEROL NEBULIZED 2.5 MG/3 ML INHALATION PRN ×2 (00:46→11:42)
[2020-01-01 02:23] LABS: Cholesterol 158 mg/dL (<200); HDL Cholesterol 33 mg/dL (40-60); LDL Cholesterol,Calculated 50 mg/dL (0-99); Triglycerides 373 mg/dL (<150)
[2020-01-01] MEDS ORDERED: MONTELUKAST 10 MG TAB PO SCH (07:00)
[2020-01-01] MEDS ORDERED: DOBUTamine DRIP for NUC MED 500 MG in DEXTROSE/WATER 1 250ML.BAG IV ONE (08:11)
[2020-01-01 08:22] VITALS: RESP 16
[2020-01-01] MEDS ORDERED: ASPIRIN 325 MG TAB PO SCH (09:00)
[2020-01-01] MEDS ORDERED: ASPIRIN 81 MG PO SCH (09:00)
--- NOTE | 2020-01-01 09:33 | P.CRDCN ---
History of Present Illness Consult date: 01/01/20 Consult reason: chest pain Chief complaint: Chest pain History of present illness: This is a pleasant 44-year-old gentleman with documented history of COPD, prior history of smoking, patient states he quit smoking approximately 5 years ago, bipolar disorder, occasional EtOH. [facility] resides at an adult foster [facility]. Presented to [facility] with symptoms of chest discomfort. According to the patient, he was having pain in the left side of his chest which he described as sharp stabbing chest pains that came and went for approximate two-hour duration. He did have some mild associated diaphoresis, and was also noting intermittent tightness. EKG performed at [facility] showed a normal sinus rhythm with no acute changes. On arrival here the EKG showed normal sinus rhythm with no acute changes. Subsequent EKG normal sinus rhythm with occasional PAC. Chest x-ray showed small bilateral pleural effusions echocardiogram with Doppler study performed in 2017 showed a normal ejection fraction, 55-60%. He also had a dobutamine echocardiographic study performed at that time which was negative for any reversible ischemia. Blood pressure 130/70 with a heart rate in the 60s, 95% on room air. White blood cell count 10.0, hemoglobin 15.8, platelet count 237. Sodium 138, potassium 4.7, BUN 15, creatinine 1.0. Troponins are negative 3. Cholesterol 158, triglycerides 373, LDL 50, HDL 33. His home medications included Effexor, Clozaril, Singulair and albuterol. At the time of my examination this morning, patient is currently chest pain-free. We will request an echocardiogram with Doppler study be performed as well as a dobutamine echo. Decrease aspirin to 81 mg daily. Past Medical History Past Medical History: Atrial Fibrillation, COPD Additional Past Medical History / Comment(s): Patient states that he has a irregular heartbeat. History of Any Multi-Drug Resistant Organisms: None Reported Past Surgical History: Hernia Repair, Orthopedic Surgery Additional Past Surgical History / Comment(s): kidney doner, right ankle surgery, bilateral laproscopic knee surgery. Past Anesthesia/Blood Transfusion Reactions: No Reported Reaction Past Psychological History: Bipolar, Schizoaffective Disorder Smoking Status: Former smoker Past Alcohol Use History: None Reported, Abuse Additional Past Alcohol Use History / Comment(s): Patient states he has a history of alcohol abuse but has been sober for 10 years. Past Drug Use History: None Reported - Past Family History Mother Family Medical History: No Reported History Father Family Medical History: Cancer Additional Family Medical History / Comment(s): lung cancer Brother(s) Family Medical History: Cancer Additional Family Medical History / Comment(s): lymphoma Medications and Allergies Home Medications Medication Instructions Recorded Confirmed Type Albuterol Sulfate [Proair Hfa] 2 puff INHALATION RT-Q6H PRN 03/25/17 12/31/19 History cloZAPine [Clozaril] 150 mg PO HS@2100 03/25/17 12/31/19 History Albuterol Nebulized [Ventolin 2.5 mg INHALATION RT-QID PRN 12/31/19 12/31/19 History Nebulized] Beclomethasone Dipropionate [Qvar 2 puff INHALATION RT-BID PRN 12/31/19 12/31/19 History 40 mcg Redihaler] Montelukast [Singulair] 10 mg PO DAILY@0700 12/31/19 12/31/19 History Venlafaxine HCl [Effexor XR] 75 mg PO DAILY@1700 12/31/19 12/31/19 History Allergies Allergy/AdvReac Type Severity Reaction Status Date / Time erythromycin lactobionate Allergy Rash/Hives Verified 03/25/17 10:27 [From Erythrocin] Physical Exam Vitals: Vital Signs Temp Pulse Pulse Resp BP BP Pulse Ox 01/01/20 08:20 97.4 F L 95 16 123/72 95 01/01/20 03:35 98.7 F 65 18 130/76 95 01/01/20 00:55 61 01/01/20 00:48 61 12/31/19 21:00 69 18 12/31/19 20:59 98.7 F 69 18 128/78 94 L 12/31/19 20:32 98.7 F 69 18 128/78 94 L 12/31/19 19:32 98.4 F 71 20 123/82 97 12/31/19 18:50 98.1 F 71 18 147/93 96 Intake and Output 12/31/19 01/01/20 01/01/20 22:59 06:59 14:59 Other: Voiding Method Toilet Toilet Toilet # Voids 0 1 1 Weight 117.934 kg PHYSICAL EXAMINATION: GENERAL: 84-year-old gentleman in no acute distress at the time of my examination HEENT: Head is atraumatic, normocephalic. Pupils equal, round. Sclera anicteric. Conjunctiva are clear. Mucous membranes of the mouth are moist. Neck is supple. There is no elevated jugular venous pressure. No carotid bruit is heard. HEART EXAMINATION: Heart S1, S2 normal. No murmur or gallop heard. CHEST EXAMINATION: Lungs are clear to auscultation and precussion. No chest wall tenderness is noted on palpation or with deep breathing. ABDOMEN: Soft, nontender. Bowel sounds are heard. No organomegaly noted. EXTREMITIES: 2+ peripheral pulses with no evidence of peripheral edema and no calf tenderness noted. NEUROLOGIC patient is awake, alert and oriented 3. . Results 12/31/19 19:07 12/31/19 19:07 Cardiac Enzymes 12/31/19 12/31/19 12/31/19 Range/Units 19:07 19:07 22:47 AST 30 (17-59) U/L Troponin I <0.012 <0.012 (0.000-0.034) ng/mL 01/01/20 Range/Units 01:50 AST (17-59) U/L Troponin I <0.012 (0.000-0.034) ng/mL Coagulation 12/31/19 Range/Units 19:07 PT 9.9 (9.0-12.0) sec APTT 24.4 (22.0-30.0) sec Lipids 01/01/20 Range/Units 01:50 Triglycerides 373 H (<150) mg/dL Cholesterol 158 (<200) mg/dL HDL Cholesterol 33 L (40-60) mg/dL CBC 12/31/19 Range/Units 19:07 WBC 10.0 (3.8-10.6) k/uL RBC 4.87 (4.30-5.90) m/uL Hgb 15.8 (13.0-17.5) gm/dL Hct 46.6 (39.0-53.0) % Plt Count 237 (150-450) k/uL Comprehensive Metabolic Panel 12/31/19 Range/Units 19:07 Sodium 138 (137-145) mmol/L Potassium 4.7 (3.5-5.1) mmol/L Chloride 106 (98-107) mmol/L Carbon Dioxide 27 (22-30) mmol/L BUN 15 (9-20) mg/dL Creatinine 1.01 (0.66-1.25) mg/dL Glucose 87 (74-99) mg/dL Calcium 9.1 (8.4-10.2) mg/dL AST 30 (17-59) U/L ALT 36 (4-49) U/L Alkaline Phosphatase 65 (38-126) U/L Total Protein 6.9 (6.3-8.2) g/dL Albumin 3.9 (3.5-5.0) g/dL Current Medications Generic Name Dose Route Start Last Admin Trade Name Freq PRN Reason Stop Dose Admin Albuterol Sulfate 2.5 mg 12/31/19 23:03 01/01/20 00:46 Albuterol Nebulized 2.5 Mg/3 Ml INHALATION 2.5 mg RT-QID PRN Administration Shortness Of Breath Aspirin 81 mg 01/01/20 09:00 01/01/20 09:08 Aspirin 81 Mg PO 81 mg DAILY GT Administration Clozapine 150 mg 12/31/19 21:00 12/31/19 23:30 Clozapine 100 Mg Tab PO 01/03/20 09:00 150 mg HS@2100 TG Administration Fluticasone Propionate 1 puff 12/31/19 23:03 Fluticasone 44 Mcg Inhaler INHALATION RT-BID PRN Shortness Of Breath Dobutamine HCl/Dextrose 500 mg 250 mls @ 35.38 mls/hr 01/01/20 08:11 / IV Solution IV 01/01/20 15:14 .Q7H4M ONE Protocol 10 MCG/KG/MIN Metoprolol Tartrate 25 mg 12/31/19 21:00 12/31/19 22:03 Metoprolol Tartrate 25 Mg Tab PO 25 mg BID TG Administration Montelukast Sodium 10 mg 01/01/20 07:00 01/01/20 06:27 Montelukast 10 Mg Tab PO 10 mg DAILY@0700 TG Administration Nitroglycerin 0.4 mg 12/31/19 20:05 Nitroglycerin Sl Tabs 0.4 Mg Tab SUBLINGUAL Q5M PRN Chest Pain Clozapine Dosing 0 each 12/31/19 23:22 MISCELLANE DIRECTED PRN CLOZAPINE Venlafaxine HCl 75 mg 01/01/20 17:00 Venlafaxine Hcl Er 75 Mg Cap PO DAILY@1700 TG Intake and Output 12/31/19 01/01/20 01/01/20 22:59 06:59 14:59 Other: Voiding Method Toilet Toilet Toilet # Voids 0 1 1 Weight 117.934 kg 12/31/19 19:07 12/31/19 19:07 EKG Interpretations (text) EKG shows normal sinus rhythm, no acute changes, occasional PACs Assessment and Plan Plan: Assessment and plan #1 atypical chest pain, troponins negative 3. EKG shows normal sinus rhythm with no acute changes. #2 history of nicotine dependence, patient quit smoking 5 years ago #3 COPD #4 bipolar disorder #5 history of arrhythmia, exact details unclear, currently remaining in normal sinus rhythm. Plan We will decrease the aspirin 81 mg daily, obtain an echocardiogram with Doppler study as well as a dobutamine echo. Further recommendations will be based on the findings of these tests and the patient's overall clinical course. DNP note has been reviewed, I agree with a documented findings and plan of care. Patient was seen and examined.
--- NOTE | 2020-01-01 10:47 | ECHOF ---
Referral Reason:chest pain MEASUREMENTS -------- HEIGHT: 175.3 cm WEIGHT: 117.9 kg BP: 130/76 RVIDd: 3.8 cm (< 3.3) IVSd: 1.2 cm (0.6 - 1.1) LVIDd: 4.9 cm (3.9 - 5.3) LVPWd: 1.5 cm (0.6 - 1.1) IVSs: 1.7 cm LVIDs: 3.2 cm LVPWs: 1.8 cm LAESV Index (A-L): 19.62 ml/m Ao Diam: 3.8 cm (2.0 - 3.7) AV Cusp: 2.2 cm (1.5 - 2.6) MV EXCURSION: 22.198 mm (> 18.000) MV EF SLOPE: 103 mm/s (70 - 150) EPSS: 1.1 cm MV E Owen: 0.74 m/s MV DecT: 190 ms MV A Owen: 0.56 m/s MV E/A Ratio: 1.32 RAP: 5.00 mmHg RVSP: 17.12 mmHg FINDINGS -------- Sinus rhythm with extra systolic beats. This was a technically adequate study. The left ventricular size is normal. There is mild concentric left ventricular hypertrophy. Overa ll left ventricular systolic function is normal with, an EF between 55 - 60 %. The diastolic fillin g pattern is normal for the age of the patient {E/E'}. The right ventricle is mild to moderately enlarged. Normal LA size by volume 22+/-6 ml/m2. The right atrial size is normal. Interatrial and interventricular septum intact. The aortic valve is trileaflet, and appears structurally normal. No aortic stenosis or regurgitation. Normal appearing mitral valve. No mitral regurgitation. Mild tricuspid regurgitation present. There is no evidence of pulmonary hypertension. The right v entricular systolic pressure, as measured by Doppler, is 17.12mmHg. There is no pulmonic regurgitation present. The aortic root size is normal. IVC Not well visulized. There is no pericardial effusion. CONCLUSIONS -------- 1. There is mild concentric left ventricular hypertrophy. 2. Overall left ventricular systolic function is normal with, an EF between 55 - 60 %. 3. The diastolic filling pattern is normal for the age of the patient {E/E'} 4. The right ventricle is mild to moderately enlarged. 5. Normal LA size by volume 22+/-6 ml/m2. 6. The aortic valve is trileaflet, and appears structurally normal. No aortic stenosis or regurgitati on. 7. Normal appearing mitral valve. 8. Mild tricuspid regurgitation present. 9. There is no pericardial effusion. SYSTEM SAFETY MANAGER: Frances Corley RDCS
[2020-01-01] MEDS ORDERED: ATROPINE SULFATE 0.1 MG/ML 10ML SYRINGE ONE (11:00)
[2020-01-01] MEDS: METOPROLOL TARTRATE 25 MG TAB PO SCH (11:38)
--- NOTE | 2020-01-01 12:25 | ECHOS ---
STRESS ECHOCARDIOGRAM INDICATIONS: Chest pain. BASELINE HEART RATE: 73 BASELINE BLOOD PRESSURE: 116/76 MAXIMUM HEART RATE: 128 MAXIMUM BLOOD PRESSURE: 159/75 85% MPHR: 149 100% MPHR: 175 MAXIMUM STAGE REACHED: 4 TOTAL EXERCISE TIME: 13:54 CLINICAL INFORMATION: Baseline rhythm is sinus mechanism, rate of 73, normal axis and intervals, rare PVCs. Baseline blood pressure 116/76 mmHg. Patient received an infusion of dobutamine and subsequently 1 mg intravenous atropine. Peak rate 128 beats per minute which is 76% maximum predicted heart rate. Peak blood pressure 159/75 mmHg. Electrocardiograph monitoring revealed no evidence of diagnostic ischemic ST deviation. Occasional PVCs were noted with rare couplets. FINDINGS: Baseline echocardiogram revealed normal wall motion. At peak infusion, there was normal wall motion augmentation with no hypokinesis or dyskinesis. CONCLUSION: 1. Nondiagnostic electrocardiograph response to dobutamine with occasional PVCs, secondary to the inability to achieve 85% maximum predicted heart rate. 2. Nondiagnostic stress echocardiogram secondary to the inability to achieve 85% maximum predicted heart rate, but at the rate achieved there was no evidence of stress-induced ischemia. MMODL / IJN: [id number] /
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
[2020-01-01 15:54] VITALS: BP 120/71; PULSE 90; TEMP 97.5
[2020-01-01] MEDS ORDERED: VENLAFAXINE HCL ER 75 MG CAP PO SCH (17:00)
== END 2020-01-01 17:29 | disposition home or self-care (01) ==
LOC: EC 18:48 → 3NCARDOBS 20:05
PROVIDERS: ADMIT Hospitalist; ATTEND Hospitalist
DX: R07.89 Other chest pain (principal); F25.9 Schizoaffective disorder, unspecified; F31.9 Bipolar disorder, unspecified; I48.91 Unspecified atrial fibrillation; J44.9 Chronic obstructive pulmonary disease, unspecified; Z79.01 Long term (current) use of anticoagulants; Z79.899 Other long term (current) drug therapy; Z80.1 Family history of malignant neoplasm of trachea, bronchus and lung; Z80.7 Family history of other malignant neoplasms of lymphoid, hematopoietic and related tissues; Z87.891 Personal history of nicotine dependence
CPT/HCPCS: 93005 ×2; 99285; 36415; 94640 ×2; 93306; 93351; 85379; 83880; 80061; 80053; 83690; 83735; 84484 ×2; 85025; 85610; 85730; 71046; G0378 ×2; J1250; J0461; S0136